=== PATIENT | female | born 2000 ===

== ENCOUNTER 2020-06-29 08:54 | Observation (INO) | payer MEDICAID ==
[2020-06-29] MEDS ORDERED: ONDANSETRON 4 MG/2 ML INJ ONE ×2 (10:22→14:42)
[2020-06-29] MEDS ORDERED: SODIUM CHLORIDE 0.9% 1000 ML 1,000 ML ONE (10:22)
[2020-06-29] MEDS ORDERED: SODIUM CHLORIDE 0.9% 1000 ML 1,000 ML IV ONE (10:30)
[2020-06-29] MEDS ORDERED: ONDANSETRON 4 MG/2 ML INJ IV ONE ×2 (10:30→12:45)
[2020-06-29] MEDS ORDERED: MORPHINE 4 MG/1 ML INJ IV ONE ×2 (10:42→12:45)
[2020-06-29 10:44] LABS: Bilirubin,Urine SM (Negative); Blood,Urine NEG (Negative); Color,Urine Amber (Yellow); Hyaline Casts,Urine 2 /LPF; Mucus,Urine 3+ /HPF
[2020-06-29 10:46] LABS: HCG Qualitative,Urine Negative (Negative)
--- NOTE | 2020-06-29 11:02 | Emergency Department Report ---
ED Abdominal Pain HPI - General Chief Complaint: Abdominal Pain Stated Complaint: ABD PAIN Time Seen by Provider: 06/29/20 10:29 Source: patient Mode of arrival: Ambulatory Limitations: No Limitations - History of Present Illness Initial Comments: The patient was evaluated in the emergency department for symptoms described in the history of present illness. He/she was evaluated in the context of the global COVID-19 pandemic, which necessitated consideration that the patient might be at risk for infection with the virus that causes COVID-19. Instit utional protocols and algorithms that pertain to the evaluation of patients at risk for COVID-19 are in a state of rapid change based on information released by regulatory bodies including the CDC and federal and state organizations. These policies and algorithms were followed during the patient's care in the emergency department. Please note that these policies, procedures and recommendations changed on a rapid basis. 19-year-old obese Arabic female presents to the emergency room complaining abdominal pain with nausea and vomiting that started 1 week ago intermittently and has gotten worse last night. Patient reports that the pain is sharp. She denies any urinary frequency or urinary urgency. She denies any constipation no vaginal bleeding no vaginal discharge. She reports she has never had pain like this before. Patient states that his low located in the lower abdomen area. She reports she has had a July 19, 2019. MD Complaint: abdominal pain Onset/Timin -: week(s), Last night (got worst) Location: LLQ, RLQ Radiation: none Severity scale (0 -10): 10 Quality: stabbing, aching, sharp Consistency: constant Improves With: nothing Worsens With: nothing Associated Symptoms: nausea, vomiting. denies: fever, constipation, hematemesis, hematochezia - Related Data LMP Date: 06/22/20 Home Medications Medication Instructions Recorded Confirmed Last Taken Famotidine [Pepcid] 1 tab PO PRN 07/19/19 07/19/19 07/18/19 21:00 Ondansetron TAB 1 tab PO PRN 07/19/19 07/19/19 07/19/19 08:00 Previous Rx's Medication Instructions Recorded Last Taken Type Ibuprofen [Motrin] 800 mg PO Q8HR PRN #60 tablet 07/21/19 Unknown Rx oxyCODONE /ACETAMINOPHEN [Percocet 1 tab PO Q6HR PRN #30 tablet 07/21/19 Unknown Rx 5/325] Allergies Allergy/AdvReac Type Severity Reaction Status Date / Time No Known Allergies Allergy Verified 06/29/20 08:57 ED Review of Systems ROS: Stated complaint: ABD PAIN Other details as noted in HPI Comment: All other systems reviewed and negative ED Past Medical Hx - Past Medical History Hx Hypertension: No (MATERNAL MOTHER) Hx Heart Attack/AMI: No Hx Congestive Heart Failure: No Hx Diabetes: No Hx Deep Vein Thrombosis: No Hx Liver Disease: No Hx Renal Disease: No Hx Sickle Cell Disease: No Hx Seizures: No Hx Asthma: No Hx COPD: No Hx HIV: No - Surgical History Hx Pacemaker: No Hx Internal Defibrillator: No Additional Surgical History: CSECTION - Social History Smoking Status: Current Every Day Smoker Substance Use Type: None - Medications Home Medications: Home Medications Medication Instructions Recorded Confirmed Last Taken Type Famotidine [Pepcid] 1 tab PO PRN 07/19/19 07/19/19 07/18/19 21:00 History Ondansetron TAB 1 tab PO PRN 07/19/19 07/19/19 07/19/19 08:00 History Ibuprofen [Motrin] 800 mg PO Q8HR PRN #60 tablet 07/21/19 Unknown Rx oxyCODONE /ACETAMINOPHEN [Percocet 1 tab PO Q6HR PRN #30 tablet 07/21/19 Unknown Rx 5/325] ED Physical Exam - General Limitations: No Limitations General appearance: alert, in distress - Head Head exam: Present: atraumatic, normocephalic - Eye Eye exam: Present: normal appearance - ENT ENT exam: Present: mucous membranes moist - Neck Neck exam: Present: normal inspection, full ROM - Respiratory Respiratory exam: Present: normal lung sounds bilaterally. Absent: chest wall tenderness, accessory muscle use - Cardiovascular Cardiovascular Exam: Present: regular rate - GI/Abdominal GI/Abdominal exam: Present: soft, tenderness. Absent: distended - Extremities Exam Extremities exam: Present: normal inspection, full ROM - Back Exam Back exam: Present: normal inspection - Neurological Exam Neurological exam: Present: alert, oriented X3 - Psychiatric Psychiatric exam: Present: normal affect, normal mood - Skin Skin exam: Present: warm, dry, intact, normal color. Absent: rash ED Course Vital Signs 06/29/20 06/29/20 06/29/20 08:57 09:08 10:52 Temperature 98.2 F Pulse Rate 71 60 Respiratory 20 18 Rate Blood Pressure 127/79 Blood Pressure 128/82 [Left] O2 Sat by Pulse 97 98 Oximetry - Reevaluation(s) Reevaluation #1: 06/29/20 12:47 Patient is requesting pain medication as she is starting to have more pain on the right side. - Consultations Consultation #1: 06/29/20 12:30 Received a call from radiologist stating that patient has an acute appendicitis Consultation #2: 06/29/20 12:[address] Mendes general surgeon regarding patient acute appendicitis. She request patient to be admitted to the hospitalist start Zosyn 4.5 mg continue with pain medication n.p.o. Consultation #3: 06/29/20 12:[address] Lieberman hospitalist informing him of the admission. Discussed with him that the patient case has been discussed with Dr. Mendes and Dr. Mcdaniel. ED Medical Decision Making - Radiology Data Radiology results: [place] [address] Cat Scan Report Signed Patient: MYA INCHOLAS MR#: [id number] : 2000 Acct:[id number] Age/Sex: 19 / F ADM Date: 06/29/20 Loc: ED Attending Dr: Ordering Physician: LOVE MATUTE Date of Service: 06/29/20 Procedure(s): CT abdomen pelvis w con Accession Number(s): [id number] cc: LOVE MATUTE CT ABDOMEN AND PELVIS WITH CONTRAST INDICATION / CLINICAL INFORMATION: Abdominal pain and tenderness. Nausea and vomiting. TECHNIQUE: Axial CT images were obtained through the abdomen and pelvis following the administration of intravenous contrast. All CT scans at this location are performed using CT dose reduction for ALARA by means of automated exposure control. COMPARISON: None available. FINDINGS: LOWER CHEST: No significant abnormality. LIVER: No significant abnormality. GALLBLADDER: Surgically absent. There is trace intrahepatic pneumobilia, likely from cholecystectomy. There is also moderate dilation of the common bile duct. PANCREAS: No significant abnormality. SPLEEN: No significant abnormality. ADRENALS: No significant abnormality. KIDNEYS / URETERS: No significant abnormality. URINARY BLADDER: No significant abnormality. REPRODUCTIVE ORGANS: No significant abnormality. STOMACH / SMALL BOWEL: No significant abnormality. COLON: No significant abnormality. APPENDIX: Dilated appendix, measuring up to 9 mm in caliber. There is mucosal thickening and periappendiceal inflammatory fat stranding. No evidence of perforation or abscess formation. PERITONEUM: No free fluid. No free air. No fluid collection. LYMPH NODES: Mildly prominent right lower quadrant lymph nodes, likely reactive. AORTA / ARTERIES: No significant abnormality. IVC / VEINS: No significant abnormality. SKELETAL SYSTEM: No significant abnormality. ADDITIONAL FINDINGS: None. IMPRESSION: 1. Acute uncomplicated appendicitis. 2. Cholecystectomy changes with trace intrahepatic pneumobilia and moderate dilation of the common bile duct. CRITICAL RESULT: Acute appendicitis Time of Discovery ([employer]URE/CDT): 11:30 AM Time of Communication (RE[employer]/CDT): 11:35 AM Licensed Practitioner Receiving Report: LOVE Aguilar Read Back Performed: Yes. Signer Name: Julio C Dale MD Signed: 06/29/2020 12:36 PM Workstation Name: [id number] Transcribed By: SS Dictated By: JULIO C DALE Electronically Authenticated By: JULIO C DALE Signed Date/Time: 06/29/20 1236 DD/ 1229 TD/TT: Print Cancel - Medical Decision Making [facility] [address] [place] [address] XRay Report Signed Patient: HUMPHREY MARIE MR#: [id number] : 11/18/1973 Acct:[id number] Age/Sex: 46 / F ADM Date: 06/29/20 Loc: ED Attending Dr: Ordering Physician: LOVE MATUTE Date of Service: 06/29/20 Procedure(s): XR shoulder 2+V RT Accession Number(s): [id number] cc: LOVE MATUTE Fluoro Time In Minutes: RIGHT SHOULDER 3 VIEW INDICATION / CLINICAL INFORMATION: Right shoulder pain. COMPARISON: None available. FINDINGS: BONES/JOINT(S): No acute fracture or subluxation. No significant degenerative changes. SOFT TISSUES: No significant abnormality. ADDITIONAL FINDINGS: None. Signer Name: Rocky Hutton MD Signed: 06/29/2020 10:12 AM Workstation Name: [email or web address] Transcribed By: ANUJ Dictated By: Rocky Hutton MD Electronically Authenticated By: Rocky Hutton MD Signed Date/Time: 06/29/20 1012 DD/ 1012 TD/TT: Print Critical care attestation.: If time is entered above; I have spent that time in minutes in the direct care of this critically ill patient, excluding procedure time. ED Disposition Clinical Impression: Acute appendicitis, Obesity (BMI 30-39.9) Disposition: OP ADMIT IP TO THIS HOSP Is pt being admited?: Yes Does the pt Need Aspirin: No Condition: Stable Instructions: Abdominal Pain (ED) Referrals: PRIMARY CARE, [Primary Care Provider] - 3-5 Days
[2020-06-29 11:38] LABS: Hemoglobin 13.6 gm/dl (10.1-14.3); Mean Corpuscular HGB Conc 33 % (30-34); Mean Corpuscular Volume 88 fl (79-97); Platelet Count 270 K/mm3 (140-440); Red Blood Count 4.68 M/mm3 (3.65-5.03); Red Cell Distribution Width 14.8 % (13.2-15.2)
[2020-06-29 11:47] LABS: Alanine Aminotransferase 10 units/L (7-56); Albumin 3.8 g/dL (3.9-5); Blood Urea Nitrogen 14 mg/dL (7-17); Calcium 8.8 mg/dL (8.4-10.2); Hemolysis Index 4
[2020-06-29 11:50] LABS: BUN/Creatinine Ratio 23
--- NOTE | 2020-06-29 12:44 | Cat Scan Report ---
CT ABDOMEN AND PELVIS WITH CONTRAST INDICATION / CLINICAL INFORMATION: Abdominal pain and tenderness. Nausea and vomiting. TECHNIQUE: Axial CT images were obtained through the abdomen and pelvis following the administration of intraven ous contrast. All CT scans at this location are performed using CT dose reduction for ALARA by means of automated exposure control. COMPARISON: None available. FINDINGS: LOWER CHEST: No significant abnormality. LIVER: No significant abnormality. GALLBLADDER: Surgically absent. There is trace intrahepatic pneumobilia, likely from cholecystectomy. There is also moderate dilation of the common bile duct. PANCREAS: No significant abnormality. SPLEEN: No significant abnormality. ADRENALS: No significant abnormality. KIDNEYS / URETERS: No significant abnormality. URINARY BLADDER: No significant abnormality. REPRODUCTIVE ORGANS: No significant abnormality. STOMACH / SMALL BOWEL: No significant abnormality. COLON: No significant abnormality. APPENDIX: Dilated appendix, measuring up to 9 mm in caliber. There is mucosal thickening and periappe ndiceal inflammatory fat stranding. No evidence of perforation or abscess formation. PERITONEUM: No free fluid. No free air. No fluid collection. LYMPH NODES: Mildly prominent right lower quadrant lymph nodes, likely reactive. AORTA / ARTERIES: No significant abnormality. IVC / VEINS: No significant abnormality. SKELETAL SYSTEM: No significant abnormality. ADDITIONAL FINDINGS: None. IMPRESSION: 1. Acute uncomplicated appendicitis. 2. Cholecystectomy changes with trace intrahepatic pneumobilia and moderate dilation of the common bi le duct. CRITICAL RESULT: Acute appendicitis Time of Discovery ([employer]SC[employer]TENANCE [employer]NSHIP/CDT): 11:30 AM Time of Communication ([employer]NS[employer]/CDT): 11:35 AM Licensed Practitioner Receiving Report: LOVE Aguilar Read Back Performed: Yes. Signer Name: Hector Dale MD Signed: 06/29/2020 12:36 PM Workstation Name: [id number]
[2020-06-29] MEDS ORDERED: PIPERACIL/TAZOBACTA 4.5/NS 100 4.5 GM/100 ML VIAL IV ONE (12:45)
[2020-06-29] MEDS ORDERED: ONDANSETRON 4 MG/2 ML INJ IV PRN (13:09)
[2020-06-29] MEDS ORDERED: ALBUTEROL 2.5 MG/3 ML NEBU IH PRN (13:09)
[2020-06-29] MEDS ORDERED: MORPHINE 2 MG/1 ML INJ IV PRN ×2 (13:09→19:24)
[2020-06-29] MEDS ORDERED: ACETAMINOPHEN 325 MG TAB PO PRN (13:09)
--- NOTE | 2020-06-29 13:12 | History and Physical Report ---
History of Present Illness Chief complaint: My stomach hurts History of present illness: 19 YO Female with Obesity, Nicotine Dependence presents to ED for evaluation. Patient reports "my stomach hurts". Patient states that she has experienced abdominal pain over the past 1 week with worsening symptoms over the past 1 day. Patient said pain is 10/10, associated with nausea, associated with multiple episodes of vomiting, constant, nonradiating, localized to the right lower quadrant. Patient transported to [facility] via private vehicle for further care and evaluation of the aforementioned symptoms. The patient was seen and evaluated in the emergency department. All lab and imaging studies reviewed. Patient underwent CT scan of the abdomen and pelvis which revealed evidence of appendicitis. Patient treated with IV fluid resuscitation therapy. Patient placed in observation status and admitted to medical floor. Surgical team consulted. Patient is pending surgical intervention. Patient denies fever, chills, chest pain, palpitation, productive cough, skin rash, recent ill contacts, ingestion of food/water from new or different sources, or known exposure to COVID-19. No prior admission for review. All medication listed at time of admission has been reconciled. Past History Past Medical History: other (See HPI) Past Surgical History: Social history: smoking Family history: diabetes, hypertension Medications and Allergies Allergies Allergy/AdvReac Type Severity Reaction Status Date / Time No Known Allergies Allergy Verified 06/29/20 08:57 Home Medications Medication Instructions Recorded Confirmed Last Taken Type Famotidine [Pepcid] 1 tab PO PRN 07/19/19 07/19/19 07/18/19 21:00 History Ondansetron TAB 1 tab PO PRN 07/19/19 07/19/19 07/19/19 08:00 History Ibuprofen [Motrin] 800 mg PO Q8HR PRN #60 tablet 07/21/19 Unknown Rx oxyCODONE /ACETAMINOPHEN [Percocet 1 tab PO Q6HR PRN #30 tablet 07/21/19 Unknown Rx 5/325] Active Meds: Active Medications Acetaminophen (Acetaminophen 325 Mg Tab) 650 mg PO Q4H PRN PRN Reason: Pain MILD(1-3)/Fever >100.5/MONSON Albuterol (Albuterol 2.5 Mg/3 Ml Nebu) 2.5 mg IH Q4HRT PRN PRN Reason: Shortness Of Breath Piperacillin Sod/Tazobactam Sod (Zosyn/Ns 4.5gm/100ml) 4.5 gm in 100 mls @ 200 mls/hr IV ONCE ONE; Protocol Stop: 06/29/20 13:14 Morphine Sulfate (Morphine 2 Mg/1 Ml Inj) 2 mg IV Q6H PRN PRN Reason: Pain, Moderate (4-6) Ondansetron HCl (Ondansetron 4 Mg/2 Ml Inj) 4 mg IV Q8H PRN PRN Reason: Nausea And Vomiting Sodium Chloride (Sodium Chloride 0.9% 10 Ml Flush Syringe) 10 ml IV BID BIPIN Sodium Chloride (Sodium Chloride 0.9% 10 Ml Flush Syringe) 10 ml IV PRN PRN PRN Reason: LINE FLUSH Review of Systems Constitutional: no weight loss, no weight gain, no chills, no sweats Ears, nose, mouth and throat: no ear pain, no ear discharge, no nose pain, no nasal discharge Breasts: no change in shape, no swelling, no mass Cardiovascular: no chest pain, no orthopnea, no rapid/irregular heart beat, no syncope Respiratory: no cough, no cough with sputum, no excessive sputum, no shortness of breath Gastrointestinal: abdominal pain, nausea, vomiting, no diarrhea, no change in bowel habits, no hematemesis Genitourinary Female: no pelvic pain, no flank pain, no dysuria, no urinary frequency, no urgency, no stress incontinence Rectal: no pain, no incontinence, no bleeding Musculoskeletal: no neck stiffness, no neck pain, no arm numbness/tingling, no shooting leg pain, no leg numbness/tingling Integumentary: no rash, no redness, no wounds, no boils Neurological: no head injury, no weakness, no numbness, no tingling, no syncope, no tremors Psychiatric: no anxiety, no sleep disturbances, no hypersomnia, no change in appetite, no change in libido, no suicidal ideation Endocrine: no cold intolerance, no polyphagia, no excessive thirst, no polyuria, no nocturia Hematologic/Lymphatic: no easy bruising, no easy bleeding, no lymphadenopathy Allergic/Immunologic: no urticaria, no wheezing, no persistent infections, no angioedema Exam - Constitutional Vitals: Temp Pulse Resp BP Pulse Ox 98.2 F 60 18 128/82 98 06/29/20 08:57 06/29/20 10:52 06/29/20 09:08 06/29/20 10:52 06/29/20 10:52 General appearance: Present: mild distress - EENT Eyes: Present: PERRL ENT: hearing intact, clear oral mucosa - Neck Neck: Present: supple, normal ROM - Respiratory Respiratory effort: normal Respiratory: bilateral: CTA - Cardiovascular Heart Sounds: Present: S1 & S2. Absent: rub, click - Extremities Extremities: pulses symmetrical, No edema Peripheral Pulses: within normal limits - Abdominal General gastrointestinal: Present: soft, non-tender, non-distended, normal bowel sounds Female genitourinary: Present: normal - Integumentary Integumentary: Present: clear, warm, dry - Musculoskeletal Musculoskeletal: gait normal, strength equal bilaterally - Psychiatric Psychiatric: appropriate mood/affect, intact judgment & insight - Neurologic Neurologic: CNII-XII intact, moves all extremities Results - Labs CBC & Chem 7: 06/29/20 11:00 06/29/20 11:00 Labs: Abnormal lab results 06/29/20 06/29/20 06/29/20 Range/Units 10:18 11:00 11:00 WBC 22.4 H (4.5-11.0) K/mm3 Glucose 121 H (65-100) mg/dL Albumin 3.8 L (3.9-5) g/dL Ur Specific [place] 1.031 H (1.003-1.030) Urine WBC (Auto) 10.0 H (0.0-6.0) /HPF Assessment and Plan - Patient Problems (1) Acute appendicitis Current Visit: Yes Status: Acute Qualifiers: Appendicitis perforation presence: without perforation Plan to address problem: CT scan abdomen pelvis, bowel rest, IV fluid resuscitation therapy, surgical team consulted, patient is pending surgical intervention at this time, (2) Nicotine dependence Current Visit: Yes Status: Acute Qualifiers: Nicotine product type: cigarettes Substance use status: in withdrawal Qualified Code(s): F17.213 - Nicotine dependence, cigarettes, with withdrawal Plan to address problem: Supportive care, smoking cessation counseling, behavior change counseling, +15 minutes (3) Obesity (BMI 30-39.9) Current Visit: Yes Status: Acute Plan to address problem: Balanced diet, increase physical activity at discharge, outpatient pulmonary follow-up for sleep study. Incentive spirometry, pulmonary toilet. (4) DVT prophylaxis Current Visit: Yes Status: Acute Plan to address problem: SCD to bilateral lower extremities while in bed, patient is ambulatory.
--- NOTE | 2020-06-29 13:21 | Consultation ---
History of Present Illness Consult date: 06/29/20 Reason for consult: abdominal pain - History of present illness History of present illness: 19 year old female presented to ED with a 1-2 week hx of worsening abdominal pain that has localized to the RLQ. She admits to some nausea but not vomiting. She had a CT scan that showed acute appendicitis. She denies ever having this pain before. Past History Past Medical History: No medical history Past Surgical History: cholecystectomy, Social history: smoking Medications and Allergies Allergies Allergy/AdvReac Type Severity Reaction Status Date / Time No Known Allergies Allergy Verified 06/29/20 08:57 Home Medications Medication Instructions Recorded Confirmed Last Taken Type Famotidine [Pepcid] 1 tab PO PRN 07/19/19 07/19/19 07/18/19 21:00 History Ondansetron TAB 1 tab PO PRN 07/19/19 07/19/19 07/19/19 08:00 History Ibuprofen [Motrin] 800 mg PO Q8HR PRN #60 tablet 07/21/19 Unknown Rx oxyCODONE /ACETAMINOPHEN [Percocet 1 tab PO Q6HR PRN #30 tablet 07/21/19 Unknown Rx 5/325] Active Meds: Active Medications Acetaminophen (Acetaminophen 325 Mg Tab) 650 mg PO Q4H PRN PRN Reason: Pain MILD(1-3)/Fever >100.5/MONSON Albuterol (Albuterol 2.5 Mg/3 Ml Nebu) 2.5 mg IH Q4HRT PRN PRN Reason: Shortness Of Breath Morphine Sulfate (Morphine 2 Mg/1 Ml Inj) 2 mg IV Q6H PRN PRN Reason: Pain, Moderate (4-6) Ondansetron HCl (Ondansetron 4 Mg/2 Ml Inj) 4 mg IV Q8H PRN PRN Reason: Nausea And Vomiting Last Admin: 06/29/20 13:12 Dose: 4 mg Documented by: Sodium Chloride (Sodium Chloride 0.9% 10 Ml Flush Syringe) 10 ml IV BID BIPIN Sodium Chloride (Sodium Chloride 0.9% 10 Ml Flush Syringe) 10 ml IV PRN PRN PRN Reason: LINE FLUSH Review of Systems - Constitutional chills, no fever - Cardiovascular no chest pain - Respiratory no cough - Gastrointestinal abdominal pain, nausea, no vomiting - Genitourinary Genitourinary: no dysuria Exam Vital Signs Temp Pulse Resp BP Pulse Ox 98.2 F 71 20 127/79 97 06/29/20 08:57 06/29/20 08:57 06/29/20 08:57 06/29/20 08:57 06/29/20 08:57 - General physical appearance Positive: well developed, no distress, moderate pain, obese - Respiratory Positive: normal expansion - Cardiovascular Heart Sounds: Present: S1 & S2 - Extremities Extremities: no ischemia - Abdomen Abdomen: Present: soft, tender. Absent: distended, guarding, rigid Results - Labs 06/29/20 11:00 06/29/20 11:00 Abnormal lab results 06/29/20 06/29/20 06/29/20 Range/Units 10:18 11:00 11:00 WBC 22.4 H (4.5-11.0) K/mm3 Glucose 121 H (65-100) mg/dL Albumin 3.8 L (3.9-5) g/dL Ur Specific [place] 1.031 H (1.003-1.030) Urine WBC (Auto) 10.0 H (0.0-6.0) /HPF Diabetes panel 06/29/20 Range/Units 11:00 Sodium 139 (137-145) mmol/L Potassium 3.8 (3.6-5.0) mmol/L Chloride 104.8 (98-107) mmol/L Carbon Dioxide 25 (22-30) mmol/L BUN 14 (7-17) mg/dL Creatinine 0.6 (0.6-1.2) mg/dL Glucose 121 H (65-100) mg/dL Calcium 8.8 (8.4-10.2) mg/dL AST 11 (5-40) units/L ALT 10 (7-56) units/L Alkaline Phosphatase 81 (35-129) units/L Total Protein 7.2 (6.3-8.2) g/dL Albumin 3.8 L (3.9-5) g/dL Calcium panel 06/29/20 Range/Units 11:00 Calcium 8.8 (8.4-10.2) mg/dL Albumin 3.8 L (3.9-5) g/dL Pituitary panel 06/29/20 Range/Units 11:00 Sodium 139 (137-145) mmol/L Potassium 3.8 (3.6-5.0) mmol/L Chloride 104.8 (98-107) mmol/L Carbon Dioxide 25 (22-30) mmol/L BUN 14 (7-17) mg/dL Creatinine 0.6 (0.6-1.2) mg/dL Glucose 121 H (65-100) mg/dL Calcium 8.8 (8.4-10.2) mg/dL Adrenal panel 06/29/20 Range/Units 11:00 Sodium 139 (137-145) mmol/L Potassium 3.8 (3.6-5.0) mmol/L Chloride 104.8 (98-107) mmol/L Carbon Dioxide 25 (22-30) mmol/L BUN 14 (7-17) mg/dL Creatinine 0.6 (0.6-1.2) mg/dL Glucose 121 H (65-100) mg/dL Calcium 8.8 (8.4-10.2) mg/dL Total Bilirubin 0.40 (0.1-1.2) mg/dL AST 11 (5-40) units/L ALT 10 (7-56) units/L Alkaline Phosphatase 81 (35-129) units/L Total Protein 7.2 (6.3-8.2) g/dL Albumin 3.8 L (3.9-5) g/dL - Imaging CT scan - abdomen: report reviewed, image reviewed CT scan - pelvis: report reviewed (inflammed appendix with fat stranding up to 9mm. no signs of perforation or abscess. no free air or fluid), image reviewed Assessment and Plan 19 year old female with acute appendicitis. Afebrile and stable with leukocytosis. Pt is consented for laparoscopic appendectomy. Pt is scheduled for today. If she recovers well may be able to be discharged tomorrow.
--- NOTE | 2020-06-29 13:56 | Anesthesia Day of Surgery ---
Anesthesia Day of Surgery - Day of Surgery Patient Examined: Yes Patient H&P Reviewed: Yes Patient is NPO: Yes
--- NOTE | 2020-06-29 13:56 | Anesthesia Consultation ---
Anesthesia Consult and Med Hx Date of service: 06/29/20 - Airway Anesthetic Teeth Evaluation: Good ROM Head & Neck: Adequate Mental/Hyoid Distance: Adequate Mallampati Class: Class I Intubation Access Assessment: Good - Pre-Operative Health Status ASA Pre-Surgery Classification: ASA2 Proposed Anesthetic Plan: General - Pulmonary Hx Smoking: Yes (1/2 PPD) Hx Respiratory Symptoms: No - Cardiovascular System Hx Hypertension: No - Central Nervous System CVA: No - Endocrine Hx Renal Disease: No Hx Liver Disease: No Hx Insulin Dependent Diabetes: No Hx Non-Insulin Dependent Diabetes: No Hx Thyroid Disease: No - Hematic Hx Anemia: No - Other Systems Hx Obesity: Yes (BMI 38) - Additional Comments Anesthesia Medical History Comments: Acute appendicitis scheduled for lap appendectomy. No hx anesthetic complications. NPO since 399 however has had nausea/vomiting. Nausea currently resolved with antiemetic.
[2020-06-29] MEDS ORDERED: SCOPOLAMINE TRANSDERMAL PATCH 72 HR TD NR (14:00)
[2020-06-29] MEDS ORDERED: LIDOCAINE MPF (2%) 20 MG/1 ML VIAL 5 ML ONE (14:08)
[2020-06-29] MEDS ORDERED: ROCURONIUM 50 MG/5 ML INJ IV ONE (14:08)
[2020-06-29] MEDS ORDERED: propofoL 200 MG/20 ML VIAL IV ONE (14:09)
[2020-06-29] MEDS ORDERED: fentaNYL 100 MCG/2 ML INJ ONE (14:09)
[2020-06-29] MEDS ORDERED: MIDAZOLAM 2 MG/2 ML INJ ONE (14:11)
[2020-06-29] MEDS ORDERED: LIDOCAINE 1%/EPINEPHRINE 1:100,000 VIAL (20 ML) INFILTRATI ONE ×2 (14:11→15:10)
[2020-06-29] MEDS ORDERED: BUPIVACAINE/PF (0.5%) 5 MG/1 ML 30 ML VIAL INFILTRATI ONE ×2 (14:11→15:09)
[2020-06-29 14:16] LABS: Platelet Estimate Consistent w Auto; RBC Morphology Normal; Total Cells Counted 100
[2020-06-29] MEDS ORDERED: dexAMETHasone 20 MG/5 ML VIAL ONE (14:42)
[2020-06-29] MEDS ORDERED: PHENYLEPHRINE/NS 1,000 MCG/10 ML SYRINGE (OR USE) IV ONE (14:42)
[2020-06-29] MEDS ORDERED: SODIUM CHLORIDE 0.9% IRR 1,500 ML BOTTLE IR ONE (15:11)
[2020-06-29] MEDS ORDERED: LACTATED RINGERS 1,000 ML ONE (15:37)
--- NOTE | 2020-06-29 15:51 | Operative Report ---
Operative Report Operative Report: Date:06/29/2020 Primary Surgeon: Lulu eMndes MD Assisted by: n/a Procedure: Laparoscopic Appendectomy Anesthesia: GETA Pre-Operative Diagnosis: acute appendicitis Post-Operative Diagnosis: Same Indications for Procedure: 19 year old female who presented to the ED with a 1 week hx of worsening abdominal pain and was found to have appendicitis on CT scan. She was consented for lap appendectomy. she expressed understanding of the risks and benefits. Description of Procedure(s): The patient was brought to the operating room and underwent general anesthesia after lower extremity SCD were placed. The abdomen was prepped and draped in the standard fashion. IV antibiotics were given and a time out was performed. Using a veress needle via a stab incision in the left subcostal region, the abdomen was insuflated to a pressure of 15mmHg. Using optivew technique, a 5mm trocar was placed just superior and to the left of the umbilicus. There was no gross injury noted to any intra-abdominal structures. After which working trocars were placed under direct visualization. A 12 mm trocar was placed in left mid abdomen, and a 5 mm trocar was inserted in the suprapubic area. The patient was placed in slight Trendelenburg position and tilted towards her left side. The cecum was identified and mobilized, as well as the terminal ileum. There was no gross purulent fluid. The appendix was noted to be retrocecal with an inflammatory exudate coat on it. The mesoappendix was transected with the LigaSure. The appendix was then taken at its base with a white load on a laparoscopic stapler. The staple line was inspected and found to be hemostatically sound and secure. The appendix was placed in Endo Catch bag. It was then retrieved via the 12 mm trocar. The fascia was then closed using a #1 PDS and a suture passer device. Trocars removed under direct visualization. The insufflation was then terminated. The skin incisions were closed using 4-0 Monocryl sutures. All the wounds dressed with dermabond. The patient tolerated the procedure well, was extubated and taken to the recovery room in satisfactory condition. Specimen: appendix Complications: none immediate EBl: minimal Findings: inflammed appendix with no gross signs of perforation
[2020-06-29] MEDS: HYDROmorphone 1 MG/1 ML INJ IV PRN ×2 (16:00→16:10)
--- NOTE | 2020-06-29 16:09 | Post Anesthesia Evaluation ---
- Post Anesthesia Evaluation Patient Participated: Yes Airway Patent: Yes Stable Respiratory Function: Yes Nausea/Vomiting: No Temp > 96.8F: Yes Pain Manageable: Yes Adequeate Hydration: Yes Anesthesia Complications: No
[2020-06-29] MEDS ORDERED: oxyCODONE /ACETAMINOPHEN 5-325MG TAB PO PRN (19:24)
[2020-06-29] MEDS: KETOROLAC 30 MG/1 ML INJ IV SCH (20:38)
[2020-06-29] MEDS: PIPERACIL/TAZOBACTA 4.5/NS 100 4.5 GM/100 ML VIAL IV SCH (20:43)
[2020-06-29 23:52] VITALS: BP 113/45
[2020-06-30] MEDS: PIPERACIL/TAZOBACTA 4.5/NS 100 4.5 GM/100 ML VIAL IV SCH (01:15)
[2020-06-30] MEDS: KETOROLAC 30 MG/1 ML INJ IV SCH (01:16)
--- NOTE | 2020-06-30 17:16 | Event Note ---
Date: 06/29/20 Pt left AMA prior to completion of care plan.
== END 2020-06-30 01:50 | disposition left against medical advice (07) ==
LOC: ED 08:54 → 3A 13:09 → 3B-SURG 19:01
PROVIDERS: ADMIT Internal Medicine; ATTEND Internal Medicine
DX: K35.80 Unspecified acute appendicitis (principal); R65.10 Systemic inflammatory response syndrome (SIRS) of non-infectious origin without acute organ dysfunction; E66.01 Morbid (severe) obesity due to excess calories; F17.213 Nicotine dependence, cigarettes, with withdrawal; Z68.41 Body mass index [BMI] 40.0-44.9, adult; Z90.710 Acquired absence of both cervix and uterus
CPT/HCPCS: 36415; 44970; 74177; 80053; 81001; 81025; 83690; 85025; 87086; 88304; 96361; 96365; 96366; 96375; 96376; 99285; G0378; J1100; J1170; J1885; J2250; J2270; J2370; J2405; J2543; J2704; J3010; J7030; J7120; Q9967; 85007